=== PATIENT | male | born 2000 | race Two or more races ===

== ENCOUNTER 2023-03-18 23:55 | Emergency (ER) | payer MEDICAID, OTHER ==
[~2023-03-18] VITALS: Ht 165.1 cm; Wt 61.2 kg
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
--- NOTE | 2023-03-19 00:08 | NUR ---
[employer] AT PT'S BEDSIDE
--- NOTE | 2023-03-19 00:13 | NUR ---
[facility] AT PT'S BEDSIDE FOR WOUND CARE
[2023-03-19] MEDS ORDERED: TDAP [DIPH/PERTUSSIS/TET] 0.5 ML VIAL IM ONE ×2 (00:26→00:30)
--- NOTE | 2023-03-19 01:00 | NUR ---
DERMABOND APPLIED TO LAC TO R EYEBROW
--- NOTE | 2023-03-19 01:10 | NUR ---
BG 101; DR PREM SHEPHERD AWARE
--- NOTE | 2023-03-19 01:12 | NUR ---
Patient discharged to [employer] custody in stable condition. Written and verbal after care instructions givento [employer]. verbalizes understanding of instruction.
[2023-03-19 01:14] VITALS: BP 121/62
== END 2023-03-19 01:16 | disposition home or self-care (01) ==
LOC: ER 23:57
DX: S01.111A Laceration without foreign body of right eyelid and periocular area, initial encounter (principal); F10.129 Alcohol abuse with intoxication, unspecified; V89.2XXA Person injured in unspecified motor-vehicle accident, traffic, initial encounter; Y93.89 Activity, other specified; Y92.89 Other specified places as the place of occurrence of the external cause; Y99.8 Other external cause status; Y90.9 Presence of alcohol in blood, level not specified
CPT/HCPCS: 99283; 12011; 90471; 90715; 82962; A6403